=== PATIENT | male | born 1975 | race Caucasian/White ===

== ENCOUNTER → 2017-06-18 | Outpatient (CLI) | payer OTHER | LOC: SBRMNEURO 21:00 | PROVIDERS: ATTEND Psychiatry & Neurology Sleep Medicine | DX: G47.33 Obstructive sleep apnea (adult) (pediatric) (principal) ==

== ENCOUNTER 2018-07-29 12:54 | Emergency (ER) | payer OTHER ==
--- NOTE | 2018-07-29 13:17 | EDPHY ---
H & P Stated Complaint: syncope Time Seen by Provider: 07/29/18 13:13 HPI/ROS: CHIEF COMPLAINT: Syncope HISTORY OF PRESENT ILLNESS: 43-year-old male presents after a syncopal episode. After donating blood just prior to arrival, he began to feel dizzy and somewhat sweaty. He stood up and walked out to his car. Once he was in the car and seated, he had a syncopal episode. He was very pale and diaphoretic according to his . He quickly regained consciousness and was not postictal. History of prior dizziness after blood draws and donating blood. No prior syncopal episode. He did not eat or drink this morning. No recent illness. REVIEW OF SYSTEMS: complete 10 point ROS reviewed and is negative except for the noted elements in the HPI - Personal History Current Tetanus/Diphtheria Vaccine: Yes Current Tetanus Diphtheria and Acellular Pertussis (TDAP): Yes - Medical/Surgical History Hx Asthma: Yes Hx Chronic Respiratory Disease: No Hx Diabetes: No Hx Cardiac Disease: No Hx Renal Disease: No Hx Cirrhosis: No Hx Alcoholism: No Hx HIV/AIDS: No Hx Splenectomy or Spleen Trauma: No Other PMH: asthma?, htn, eczema - Physical Exam Exam: General Appearance: Alert, pleasant and talkative Eyes: Pupils equal and round, no conjunctival pallor ENT, Mouth: Mucous membranes moist Neck: Normal inspection Respiratory: Lungs are clear to auscultation Cardiovascular: Regular rate and rhythm, no murmur Gastrointestinal: Abdomen is soft and nontender Neurological: Alert, oriented x3, cranial nerves II through XII intact, motor and sensory grossly intact Skin: Warm and dry Extremities: Normal inspection Psychiatric: Mood and affect normal Constitutional: Initial Vital Signs Heart Rate 65 07/29/18 12:59 Respiratory Rate 18 07/29/18 12:59 Blood Pressure 133/95 H 07/29/18 12:59 O2 Sat (%) 97 07/29/18 12:59 O2 Delivery Mode Room Air Medical Decision Making - Diagnostics EKG Interpretation: EKG interpreted by me reveals sinus rhythm, rate 65, T-wave flattening in the inferolateral leads. Interpretation: Borderline EKG ED Course/Re-evaluation: This patient presents after a vasovagal syncopal episode secondary to donating blood. Stat EKG reveals no evidence of ischemia or dysrhythmia. The patient ate crackers and had some juice in the emergency department. clinical research monitor revealed normal sinus rhythm throughout. He ambulated with a steady gait upon discharge and remained asymptomatic throughout. Safe and stable for discharge home. Warning signs discussed. Differential Diagnosis: Differential diagnosis includes though is not limited to cardiac dysrhythmia, CVA, TIA, GI bleed, sepsis, hypoglycemia. - Data Points Laboratory Results: Laboratory Results 07/29/18 13:24 07/29/18 13:24 07/29/18 07/29/18 13:24 13:24 WBC 8.70 10^3/uL 10^3/uL (3.80-9.50) RBC 5.30 10^6/uL 10^6/uL (4.40-6.38) Hgb 16.2 g/dL g/dL (13.7-17.5) Hct 47.9 % % (40.0-51.0) MCV 90.4 fL fL (81.5-99.8) MCH 30.6 pg pg (27.9-34.1) MCHC 33.8 g/dL g/dL (32.4-36.7) RDW 11.9 % % (11.5-15.2) Plt Count 303 10^3/uL 10^3/uL (150-400) MPV 10.0 fL fL (8.7-11.7) Neut % (Auto) 53.9 % % (39.3-74.2) Lymph % (Auto) 35.1 % % (15.0-45.0) [place] % (Auto) 7.9 % % (4.5-13.0) Eos % (Auto) 1.7 % % (0.6-7.6) Baso % (Auto) 0.9 % % (0.3-1.7) Nucleat RBC Rel Count 0.0 % % (0.0-0.2) Absolute Neuts (auto) 4.69 10^3/uL 10^3/uL (1.70-6.50) Absolute Lymphs (auto) 3.05 10^3/uL H 10^3/uL (1.00-3.00) Absolute Monos (auto) 0.69 10^3/uL 10^3/uL (0.30-0.80) Absolute Eos (auto) 0.15 10^3/uL 10^3/uL (0.03-0.40) Absolute Basos (auto) 0.08 10^3/uL 10^3/uL (0.02-0.10) Absolute Nucleated RBC 0.00 10^3/uL 10^3/uL (0-0.01) Immature Gran % 0.5 % % (0.0-1.1) Immature Gran # 0.04 10^3/uL 10^3/uL (0.00-0.10) Sodium 138 mEq/L mEq/L (135-145) Potassium 4.5 mEq/L mEq/L (3.5-5.2) Chloride 105 mEq/L mEq/L (97-110) Carbon Dioxide 27 mEq/l mEq/l (22-31) Anion Gap 6 mEq/L mEq/L (6-14) BUN 14 mg/dL mg/dL (7-23) Creatinine 1.1 mg/dL mg/dL (0.7-1.3) Estimated GFR > 60 Glucose 128 mg/dL H mg/dL (70-100) Calcium 9.3 mg/dL mg/dL (8.5-10.4) Departure - Departure Disposition: Home, Routine, Self-Care Clinical Impression: Syncope Qualifiers: Syncope type: vasovagal syncope Qualified Code(s): R55 - Syncope and collapse Condition: Good Instructions: Syncope (ED) Additional Instructions: Drink plenty of fluids and eat regularly today. You may take Tylenol if you have a headache. Return with any concerns. Referrals: Melany Edwards MD [Medical Doctor] - As per Instructions
[2018-07-29 13:32] LABS: PLATELET COUNT 303 10^3/uL (150-400)
[2018-07-29 14:19] VITALS: BP 126/93
--- NOTE | 2018-07-29 19:48 | CPEKG ---
Test Reason : OPEN Blood Pressure : / mmHG Vent. Rate : 065 BPM Atrial Rate : 065 BPM P-R Int : 152 ms QRS Dur : 094 ms QT Int : 373 ms P-R-T Axes : 022 013 -07 degrees QTc Int : 388 ms Sinus rhythm Borderline T abnormalities, inferior leads Confirmed by Flavia Roper ([id number]) on 07/29/2018 7:48:32 PM Referred By: FLAVIA ROPER Confirmed By:Flavia Roper
== END 2018-07-29 14:19 | disposition home or self-care (01) ==
LOC: EDUNIT#
DX: R55 Syncope and collapse (principal); I10 Essential (primary) hypertension